=== PATIENT | female | born 1975 | race African-American/Black ===

== ENCOUNTER 2019-04-25 10:56 | Day surgery (SDC) | payer OTHER ==
[2019-04-24 11:26] VITALS: BMI 30.6
[2019-04-25 12:25] LABS: BASO % 0.6 % (0-2.0); EOS % 2.7 % (0-4.5); HEMATOCRIT 35.4 % (32.4-45.2); HEMOGLOBIN 11.7 GM/dL (10.7-15.3); LYMPH % 18.9 % (8-40); MCH 29.7 pg (25.7-33.7); MCHC 33.1 g/dl (32.0-36.0); MEAN CELL VOLUME 89.8 fl (80-96); MEAN PLT VOLUME 9.7 fl (7.5-11.1); MONO % 6.1 % (3.8-10.2); NEUT % 71.7 % (42.8-82.8); PLATELET COUNT 323 K/MM3 (134-434); RBC 3.94 M/mm3 (3.60-5.2); RDW 13.4 % (11.6-15.6); WHITE BLOOD COUNT 10.2 K/mm3 (4.0-10.0)
[2019-04-25 12:33] LABS: INR 1.04 (0.83-1.09); PROTHROMBIN TIME (PATIENT) 12.3 SEC (9.7-13.0)
[2019-04-25 12:36] LABS: ACTIVATED PTT 33.4 SECONDS (25.2-36.5)
[2019-04-25 12:58] LABS: ALBUMIN 3.4 g/dl (3.4-5.0); ALK PHOS 65 U/L (45-117); ANION GAP 5 MMOL/L (8-16); BILIRUBIN,TOTAL 0.5 mg/dL (0.2-1); BLOOD UREA NITROGEN 16.4 mg/dL (7-18); CALCIUM 9.1 mg/dL (8.5-10.1); CHLORIDE 104 mmol/L (98-107); CO2 28 mmol/L (21-32); CREATININE 0.8 mg/dL (0.55-1.3); GLUCOSE,RANDOM 75 mg/dL (74-106); POTASSIUM 3.9 mmol/L (3.5-5.1); SGOT/AST 15 U/L (15-37); SGPT/ALT 21 U/L (13-61); SODIUM 137 mmol/L (136-145); TOT PROT 7.2 g/dl (6.4-8.2)
--- NOTE | 2019-04-25 13:48 | HP ---
Admitting History and Physical - Primary Care Physician PCP: Rickey Wolf - Admission Chief Complaint: menorraghia History of Present Illness: menorrhagia History Source: Patient Limitations to Obtaining History: No Limitations - Past Medical History TIMBER FELLER: No: Alzheimer's, CVA, Dementia, Migraine, Multiple Sclerosis, Peripheral Neuropathy, Parkinson's, Seizure, Syncope, TIA, Vertigo, Other Cardiovascular: No: AFIB, Aneurysm, Aortic Insufficiency, Aortic Stenosis, CAD, CHF, Deep Vein Thrombosis, HTN, Hyperlipdemia, [place], Mitral Insufficiency, Mitral Stenosis, Murmur, Pulmonary Hypertension, Other Pulmonary: No: Asthma, Bronchitis, Cancer, COPD, O2 Dependent, Pneumonia, Previously Intubated, Pulmonary Embolus, Pulmonary Fibrosis, Sleep Apnea, Other Gastrointestinal: No: Ascites, Cancer, Constipation, Crohn's Disease, Diverticulitis, Diverticulosis, Esophageal Varices, Gastritis, GERD, GI Bleed, Hemorrhoids, Hiatal Hernia, Inflamatory Bowel Disease, Irritable Bowel Disease, Pancreatitis, Peptic Ulcer Disease, Ulcerative Colitis, Other Hepatobiliary: No: Cirrhosis, Cholelithiasis, Cholecystitis, Choledocholithiasis, Hepatitis A, Hepatitis B, Hepatitis C, Other Renal/: No: Renal Failure, Renal Inusuff, BPH, Cancer, Hematuria, Hem odialysis, Neurogenic Bladder, Renal Calculi, UTI, Other Reproductive: No: Ectopic , Endometriosis, Fibroids, PID, Polycystic Ovary Syndrome, Postmenopausal, Other ...LMP: 04/06/19 ...: No Heme/Onc: Yes: Anemia, B12 Deficiency Infectious Disease: No: AIDS, C-Diff, Herpes Zoster, HIV, MRSA, STD's, Tuberculosis, VREF, Other Psych: No: Addictions, Anxiety, Bipolar, Depression, Panic, Psychosis, Schizophrenia, Other Musculoskeletal: No: Bursitis, Chronic low back pain, Hemiparesis, Hemiplegia, Osteoarthritis, Paraplegia, Other Rheumatology: No: Fibromyalgia, Gout, Lupus, Rheumatoid Arthritis, Sarcoidosis, Vasculitis, Other ENT: No: Allergic Rhinitis, Sinusitis, Other Endocrine: No: John's Disease, Alona's Disease, Diabetes Insipidus, Diabetes Mellitus, Hyperparathyroidism, Hyperthyroidism, Hypothyroidism, Osteopenia, SIADH, Other Dermatology: No: Basal Cell, Cellulitis, Eczema, Melanoma, Psoriasis, Squamous Cell, Other - Past Surgical History Past Surgical History: Yes: Bariatric Surgery - Advance Directives Advance Directives: Yes: Health Care Proxy - Smoking History Smoking history: Never smoked Have you smoked in the past 12 months: No - Alcohol/Substance Use Hx Alcohol Use: Yes (social) History of Substance Use: reports: None - Social History Usual Living Arrangement: Yes: With Significant Other Do you think of yourself as: Straight/Heterosexual ADL: Independent History of Recent Travel: No Home Medications - Allergies Allergies/Adverse Reactions: Allergies Allergy/AdvReac Type Severity Reaction Status Date / Time NSAIDS (Non-Steroidal AdvReac Verified 04/24/19 11:12 Anti-Inflamma - Home Medications Home Medications: Ambulatory Orders Bc Patch TD WEEKLY 04/24/19 Ergocalciferol (Vitamin D2) [Vitamin D2] 2,000 unit PO DAILY 04/24/19 Lisinopril/Hydrochlorothiazide [Lisinopril-Hctz 10-12.5 mg Tab] 1 each PO DAILY 04/24/19 Zinc 220 mg PO DAILY 04/24/19 Family Medical History Family History: Denies Review of Systems - Review of Systems Constitutional: reports: No Symptoms Eyes: reports: No Symptoms HENT: reports: No Symptoms Neck: reports: No Symptoms Cardiovascular: reports: No Symptoms Respiratory: reports: No Symptoms Gastrointestinal: reports: No Symptoms Genitourinary: reports: Hematuria Breasts: reports: No Symptoms Reported Musculoskeletal: reports: No Symptoms Integumentary: reports: No Symptoms Neurological: reports: No Symptoms Endocrine: reports: No Symptoms Hematology/Lymphatic: reports: Excessive Bleeding Psychiatric: reports: No Symptoms Physical Examination Vital Signs: Vital Signs Temperature 98.1 F 04/25/19 12:41 Pulse Rate 74 04/25/19 12:41 Respiratory Rate 18 04/25/19 12:41 Blood Pressure 138/83 04/25/19 12:41 O2 Sat by Pulse Oximetry (%) 98 04/25/19 12:42 Constitutional: Yes: Well Nourished, No Distress, Calm Eyes: Yes: WNL, Conjunctiva Clear, EOM Intact HENT: Yes: WNL, Atraumatic, Normocephalic Neck: Yes: WNL, Supple, Trachea Midline Cardiovascular: Yes: WNL, Regular Rate and Rhythm Respiratory: Yes: WNL, Regular, CTA Bilaterally Gastrointestinal: Yes: WNL, Normal Bowel Sounds, Soft ...Rectal Exam: Yes: WNL Renal/: Yes: WNL Breast(s): Yes: WNL Musculoskeletal: Yes: WNL Extremities: Yes: WNL Edema: No Peripheral Pulses WNL: Yes Integumentary: Yes: WNL Wound/Incision: Yes: Clean/Dry, Well Approximated Neurological: Yes: WNL, Alert, Oriented ...Motor Strength: WNL Psychiatric: Yes: WNL, Alert, Oriented Labs: CBC, BMP 04/25/19 11:55 04/25/19 11:55 Assessment/Plan for d and c , hysteroscopy, and ablation
[2019-04-25] MEDS ORDERED: MIDAZOLAM HCL 2 MG/2 ML SINGLE DOSE VIAL ONE ×2 (14:00→14:15)
[2019-04-25] MEDS ORDERED: PROPOFOL 20 ML ONE (14:18)
[2019-04-25] MEDS ORDERED: ACETAMINOPHEN 325 MG TABLET (FP) PO PRN (15:06)
[2019-04-25] MEDS ORDERED: oxyCODONE HCL 5 MG TABLET PO PRN (15:06)
--- NOTE | 2019-04-25 15:13 | OP ---
Operative Note - Note: Operative Date: 04/25/19 Pre-Operative Diagnosis: menorrhagia Operation: d anc, hysteroscopy, uterine ablation Findings: polyps, no fibroids in the uterine cavity Post-Operative Diagnosis: Same as Pre-op Surgeon: Rickey Wolf Anesthesia: Spinal Estimated Blood Loss (mls): 1 (no complications ) Operative Report Dictated: Yes
[2019-04-25] MEDS ORDERED: LACTATED RINGERS SOLUTION 1,000 ML IV SCH (15:15)
[2019-04-25 18:53] VITALS: BP 138/80; PULSE 62; TEMP 98.1
--- NOTE | 2019-04-28 09:06 | EKG ---
Test Reason : Blood Pressure : / mmHG Vent. Rate : 068 BPM Atrial Rate : 068 BPM P-R Int : 150 ms QRS Dur : 080 ms QT Int : 414 ms P-R-T Axes : 059 048 030 degrees QTc Int : 440 ms NORMAL SINUS RHYTHM NORMAL ECG NO PREVIOUS ECGS AVAILABLE Confirmed by Geraldo Ross ([id number]) on 04/28/2019 9:06:09 AM Referred By: Rickey Wolf Confirmed By:Geraldo Ross
--- NOTE | 2019-04-29 13:40 | PATH ---
Surgical Pathology Report Patient Name: ABDULKADIR CANTU [facility]. Rec. #: [id number] /Age/Gender: 1975 (Age: 43) / F Account: [id number] Location: [facility] SURGICAL Taken: 04/25/2019 Received: 04/28/2019 Reported: 04/29/2019 Physicians: Rickey Wolf MD Specimen(s) Received ENDOMETRIAL CURETTINGS Clinical History Menorrhagia Final Diagnosis ENDOMETRIAL CURETTINGS, DILATION AND CURETTAGE: POLYPOID INACTIVE ENDOMETRIUM WITH ACUTE AND CHRONIC ENDOMETRITIS, ENDOCERVICAL MUCOSA WITH ACUTE CERVICITIS, SCANT BENIGN SQUAMOUS EPITHELIUM IN A BACKGROUND OF HEMORRHAGE AND ACUTE INFLAMMATORY INFILTRATE. Electronically Signed Suzy Chung M.D. Gross Description Received in formalin labeled "endometrial curettings," is a 2.0 x 2.0 x 0.3 cm aggregate of john-brown soft tissue fragments admixed with mucus. The formalin is filtered and the specimen is entirely submitted in one cassette. /04/28/2019 [facility]/04/28/2019
--- NOTE | 2019-05-02 22:49 | OP ---
DATE OF OPERATION: 04/25/2019 PREOPERATIVE DIAGNOSIS: Menorrhagia. POSTOPERATIVE DIAGNOSIS: Menorrhagia. Uterine polyps. PROCEDURE: Dilation and curettage, hysteroscopy, and uterine ablation. SURGEON: Rickey Palacios MD. ANESTHESIA: Spinal ANESTHESIOLOGIST: Chris Alcala MD. BLOOD LOSS: About 1 mL INDICATION: A 43-year-old female patient with history of menorrhagia. Patient has been complaining about heavy menstruation period and bleeding more than 5 days, soaking more than 8 pads, patient was seen in ER with complaint of menorrhagia, and patient was sent home, and patient could not take this menorrhagia any more, so patient was taken to OR for D&C hysteroscopy and uterine ablation. DESCRIPTION OF PROCEDURE: So was patient was placed on operating table in lithotomy position after the spinal anesthesia was obtained, and then patient was placed in lithotomy position, and patient's abdomen and pelvis was prepped and draped in the usual sterile manner. Heavy speculum was placed into the vagina. Cervix was grasped with tenaculum, it was sounded and dilated, and D&C was performed, and the hysteroscopy scope was inserted, and the uterine polyp was seen, and then we proceeded with ablation, with the hydroablation machine, and good hemostasis was obtained according to the machine's time. No complication. Patient tolerated procedure well, draining clear urine, blood loss about 1 mL, and awakened from spinal anesthesia, transferred to recovery room in spinal condition. RICKEY PALACIOS MD EP/[id number]
== END 2019-04-25 18:30 | disposition home or self-care (01) ==
LOC: JASU-SURG 10:56
PROVIDERS: ATTEND Obstetrics & Gynecology
PROC: 0UDB7ZX Extraction of Endometrium, Via Natural or Artificial Opening, Diagnostic (ICD-10-PCS; 2019-04-25)
PROC: 0U5B8ZZ Destruction of Endometrium, Via Natural or Artificial Opening Endoscopic (ICD-10-PCS; principal; 2019-04-25 13:30)
DX: N92.0 Excessive and frequent menstruation with regular cycle (principal); N84.0 Polyp of corpus uteri
CPT/HCPCS: 36415; 80053; 84702; 85025; 85610; 85730; 86850; 86900; 86901; 88305-TC; 93005; 93010; 94760